=== PATIENT | male | born 1975 | race Caucasian/White ===

== ENCOUNTER → 2020-04-11 | Outpatient (CLI) | payer BC, OTHER | LOC: KOH-I 10:56 | DX: M47.812 Spondylosis without myelopathy or radiculopathy, cervical region (principal); M54.6 Pain in thoracic spine | CPT/HCPCS: 72040; 72070 ==

== ENCOUNTER → 2020-04-29 | Outpatient (CLI) | payer BC, OTHER | LOC: EMI 09:00 | DX: G89.18 Other acute postprocedural pain (principal) | CPT/HCPCS: 72156; 72157; A9577 ==

== ENCOUNTER → 2020-05-18 | Outpatient (CLI) | payer BC, OTHER | LOC: EMI 08:00 | DX: M54.5 Low back pain (principal); M51.36 Other intervertebral disc degeneration, lumbar region; M51.37 Other intervertebral disc degeneration, lumbosacral region; M48.07 Spinal stenosis, lumbosacral region | CPT/HCPCS: 72148 ==